=== PATIENT | male | born 1960 | race Hispanic/Latino ===

== ENCOUNTER 2017-04-20 15:25 | Emergency (ER) | payer SELFPAY ==
[2017-04-20 16:55] LABS: INR-International Normal Ratio 1.1; PTT 35.1 SEC (22.9-36.1); Prothrombin Time 14.6 SEC (12.0-14.7)
[2017-04-20 17:02] LABS: ALT (SGPT) 42 U/L (8-55); AST (SGOT) 100 U/L (5-34); Albumin 3.6 g/dL (3.5-5.0); Alkaline Phosphatase 110 U/L (40-150); Anion Gap 18 mmol/L (10-20); BUN (Urea Nitrogen) 11 mg/dL (8.4-25.7); Bilirubin, Total 0.7 mg/dL (0.2-1.2); Calc. Creatinine Clearance 0 mL/min (70-130); Calcium 8.4 mg/dL (7.8-10.44); Carbon Dioxide 26 mmol/L (22-29); Chloride 101 mmol/L (98-107); Estimated GFR-MDRD Greater than 90; Glucose 94 mg/dL (70-105); Potassium 3.3 mmol/L (3.5-5.1); Protein, Total 8.6 g/dL (6.0-8.3); Sodium 142 mmol/L (136-145)
[2017-04-20 18:48] LABS: #Basophils 0.1 thou/uL (0.0-0.2); #Monocytes 0.8 thou/uL (0.11-0.59); #Neutrophils 8.5 thou/uL (1.40-6.50); %Basophils 0.6 % (0.0-1.0); %Eosinophils 0.1 % (0.0-10.0); %Lymphocytes 9.4 % (21.0-51.0); %Monocytes 7.6 % (0.0-10.0); %Neutrophils 82.4 % (42.0-75.0); Hemoglobin 10.3 g/dL (14.0-18.0); Mean Corpuscular Hemoglobin 27.8 pg (27.0-31.0); Mean Corpuscular Volume 89.8 fl (80.0-94.0); Mean Platelet Volume 8.4 fL (7.4-10.4); RBC Distribution Width 16.5 % (11.5-14.5); Red Blood Cell (RBC) Count 3.69 mill/uL (4.70-6.10); White Blood Cell (WBC) Count 10.3 thou/uL (4.8-10.8)
[2017-04-20 19:09] LABS: Anisocytosis SLIGHT = 6-15 cells (100X) (0-5/hpf); Hypochromia SLIGHT = 6-15 cells (100X) (0-5/hpf); Large Platelets SLIGHT; MDiff Complete? YES; Microcytosis SLIGHT = 6-15 cells (100X) (0-5/hpf); Ovalocytes SLIGHT = 2-5 cells (100X) (0-1/hpf); PLT Morphology Comment Appears Decreased; Platelet Count 37 thou/uL (130-400); Polychromasia SLIGHT = 2-3 cells (100X) (0-2/hpf); Target Cells SLIGHT = 2-5 cells (100X) (0-1/hpf)
== END 2017-04-20 19:13 | disposition home or self-care (01) ==
LOC: NAV ERS 15:25
DX: K29.20 Alcoholic gastritis without bleeding (principal); D64.9 Anemia, unspecified; K05.6 Periodontal disease, unspecified; K05.10 Chronic gingivitis, plaque induced
CPT/HCPCS: 80053; 85025; 85610; 85730; 96360

== ENCOUNTER 2018-05-08 18:07 | Emergency (ER) | payer SELFPAY ==
[2018-05-08] MEDS ORDERED: Diltiazem 125 MG/25 ML ONE (18:33)
[2018-05-08] MEDS ORDERED: Sodium Chloride 0.9% 1,000 ML ONE ×2 (18:36→19:15)
[2018-05-08 18:43] LABS: Bilirubin Negative (Negative); Blood, Urine Negative (Negative); Clarity Clear (Clear); Glucose, Urine (Dipstick) Negative (Negative); Leukocyte Negative (Negative); Nitrite Negative (Negative); Protein, Urine (Dipstick) Negative (Neg-Trace); Specific Gravity, Urine 1.015 (1.005-1.030); pH, Urine 7.5 (5.0-9.0)
[2018-05-08 18:47] LABS: INR-International Normal Ratio 1.2; Prothrombin Time 15.2 SEC (12.0-14.7)
[2018-05-08 18:48] LABS: PTT 37.2 SEC (22.9-36.1)
[2018-05-08 18:49] LABS: Amphetamine Not Detected (NotDetected); Barbiturates Screen Not Detected (NotDetected); Benzodiazepine Screen Not Detected (NotDetected); Cocaine Metabolite Screen Not Detected (NotDetected); Medtox Control Line Valid? VALID (VALID); Methadone Not Detected (NotDetected); Methamphetamine Not Detected (NotDetected); Opiate Screen Not Detected (NotDetected); Oxycodone Screen Not Detected (NotDetected); Phencyclidine (PCP) Not Detected (NotDetected); THC/Cannabinoid Screen Not Detected (NotDetected); Tricyclic Screen Not Detected (NotDetected)
[2018-05-08 18:56] LABS: #Basophils 0.1 thou/uL (0.0-0.2); #Lymphocytes 0.7 thou/uL (1.20-3.40); #Monocytes 0.4 thou/uL (0.11-0.59); #Neutrophils 2.5 thou/uL (1.40-6.50); %Basophils 1.7 % (0.0-1.0); %Lymphocytes 18.5 % (21.0-51.0); %Monocytes 9.9 % (0.0-10.0); Hemoglobin 7.7 g/dL (14.0-18.0); Mean Corpuscular HGB CONC 28.2 g/dL (32.0-36.0); Mean Corpuscular Hemoglobin 18.6 pg (27.0-31.0); Mean Corpuscular Volume 66.1 fL (78.0-98.0); Mean Platelet Volume 6.4 fL (7.4-10.4); Platelet Count 34 thou/uL (130-400); RBC Distribution Width 19.8 % (11.5-14.5); Red Blood Cell (RBC) Count 4.14 mill/uL (4.70-6.10); White Blood Cell (WBC) Count 3.5 thou/uL (4.8-10.8)
[2018-05-08 18:57] LABS: ALT (SGPT) 35 U/L (8-55); AST (SGOT) 99 U/L (5-34); Albumin 3.7 g/dL (3.5-5.0); Alcohol 262 mg/dL (Less than 10); Alkaline Phosphatase 101 U/L (40-150); Anion Gap 20 mmol/L (10-20); BUN (Urea Nitrogen) 5 mg/dL (8.4-25.7); Bilirubin, Total 0.7 mg/dL (0.2-1.2); Calc. Creatinine Clearance 0 mL/min (70-130); Calcium 9.2 mg/dL (7.8-10.44); Carbon Dioxide 23 mmol/L (22-29); Chloride 96 mmol/L (98-107); Estimated GFR-MDRD Greater than 90; Globulin 5.5 g/dL (2.4-3.5); Glucose 119 mg/dL (70-105); Potassium 3.3 mmol/L (3.5-5.1); Protein, Total 9.2 g/dL (6.0-8.3); Sodium 136 mmol/L (136-145)
[2018-05-08] MEDS ORDERED: Pantoprazole 40 MG VIAL ONE (19:15)
[2018-05-08] MEDS ORDERED: Sodium Chloride 0.9% 250 ML 250 ML ONE (19:27)
[2018-05-08 19:36] LABS: Anisocytosis SLIGHT = 6-15 cells (100X) (0-5/hpf); Hypochromia MODERATE=16-30 cells (100X) (0-5/hpf); MDiff Complete? YES; Ovalocytes SLIGHT = 2-5 cells (100X) (0-1/hpf); Platelet Morphology Comment Appears Decreased; Poikilocytosis MODERATE=16-30 cells (100X) (0-5/hpf); Reflex for Review?? YES; Tear Drops SLIGHT = 2-5 cells (100X) (0-1/hpf)
--- NOTE | 2018-05-08 19:40 | CT ---
CT HEAD NONCONTRAST: HISTORY: Syncope. COMPARISON: None. FINDINGS: There is no evidence of acute intracranial hemorrhage or infarct. Diffuse cortical atrophy and chron ic ischemic small vessel disease are apparent. Calcification at the right posterior aspect of the po sterior fossa is favored to represent volume averaging of the right skull base. The visualized paran dinh sinuses are well aerated. IMPRESSION: No acute intracranial abnormalities are demonstrated. POS: BST
--- NOTE | 2018-05-08 21:07 | RAD ---
CHEST ONE VIEW: HISTORY: Syncope. COMPARISON: None. FINDINGS: The cardiac silhouette is magnified by projection. Shallow inspiration accentuates pulmonary marking s. Mediastinum is midline. No lobar consolidation or evidence of pneumothorax. Mild atelectasis at the left lung base. radiation monitor leads overly the chest. IMPRESSION: No active cardiopulmonary abnormalities are demonstrated. POS: BST
[2018-05-08] MEDS ORDERED: Cefepime 2 GM VIAL ONE (21:12)
[2018-05-08 21:23] LABS: CO2 Tension (PvCO2) 36.7 mmHg (41.0-51.0); pH (Venous) 7.423 (7.35-7.45)
[2018-05-08 21:24] LABS: Base Excess-Venous -0.4 mmol/L (0 (+/- 2.5)); Bicarbonate (HCO3v) 23.9 mmol/L (22.0-29.0); O2 Tension (PvO2) 90.4 mmHg (35.0-45.0); vO2 Saturation-calc 97.2 % (94-98)
[2018-05-08] MEDS ORDERED: Multivitamin W/ Minerals 1 TAB PO SCH (21:30)
[2018-05-08] MEDS ORDERED: Dextrose 5 %-0.45 % NaCl 1,000 ML ONE (21:30)
[2018-05-08 21:34] LABS: Calcium, Ionized 0.98 mmol/L (1.12-1.32); Hemoglobin - Calc 8.7 g/dL (12.0-18.0); Potassium 3.2 mmol/L (3.4-4.7); T. Carbon Dioxide 25.1 mmol/L (1.0-85.0)
[2018-05-08] MEDS ORDERED: Potassium Chloride 20 MEQ TAB ONE (22:47)
[2018-05-08] MEDS ORDERED: Magnesium Oxide 400 MG TAB PO SCH (23:00)
[2018-05-09 00:56] LABS: Lactic Acid 3.1 mmol/L (0.5-2.2)
[2018-05-09] MEDS ORDERED: Dextrose 5 %-0.45 % NaCl 1,000 ML ONE (01:18)
[2018-05-09] MEDS ORDERED: Enoxaparin Sodium 40 MG/0.4 ML SYRINGE ONE (04:04)
[2018-05-09] MEDS ORDERED: Enoxaparin Sodium 30 MG/0.3 ML SYRINGE ONE (04:04)
[2018-05-09] MEDS ORDERED: Dextrose 5 %-0.45 % NaCl 1,000 ML IV SCH (05:30)
[2018-05-09] MEDS ORDERED: Lorazepam 2 MG/ML VIAL ONE ×3 (06:30→07:16)
[2018-05-09] MEDS ORDERED: Sodium Chloride 0.9% 0 ML ONE (07:02)
[2018-05-09] MEDS ORDERED: Potassium Chloride 10 MEQ/100 ML PREMIX BAG ONE (07:02)
[2018-05-09 07:04] LABS: Anion Gap 24 mmol/L (10-20); Globulin 5.4 g/dL (2.4-3.5)
[2018-05-09 07:06] LABS: Hemoglobin 9.8 g/dL (14.0-18.0); Mean Corpuscular HGB CONC 29.2 g/dL (32.0-36.0); Mean Corpuscular Hemoglobin 20.8 pg (27.0-31.0); Mean Platelet Volume 9.4 fL (7.4-10.4); Platelet Count 33 thou/uL (130-400); RBC Distribution Width 21.7 % (11.5-14.5); Red Blood Cell (RBC) Count 4.71 mill/uL (4.70-6.10); White Blood Cell (WBC) Count 5.8 thou/uL (4.8-10.8)
[2018-05-09 07:07] LABS: ALT (SGPT) 29 U/L (8-55); AST (SGOT) 67 U/L (5-34); Albumin 3.5 g/dL (3.5-5.0); Alkaline Phosphatase 108 U/L (40-150); Anisocytosis SLIGHT = 6-15 cells (100X) (0-5/hpf); BUN (Urea Nitrogen) Less than 4 mg/dL (8.4-25.7); Bilirubin, Total 1.4 mg/dL (0.2-1.2); Calc. Creatinine Clearance 0 mL/min (70-130); Calcium 8.5 mg/dL (7.8-10.44); Carbon Dioxide 18 mmol/L (22-29); Chloride 94 mmol/L (98-107); Estimated GFR-MDRD Greater than 90; Glucose 185 mg/dL (70-105); Hypochromia SLIGHT = 6-15 cells (100X) (0-5/hpf); Lymphocytes 11 % (21-51); MDiff Complete? YES; Microcytosis SLIGHT = 6-15 cells (100X) (0-5/hpf); Monocytes 12 % (0-10); Neutrophil 77 % (42-75); Nucleated RBC 3 % (0); Platelet Morphology Comment Appears Decreased; Potassium 2.6 mmol/L (3.5-5.1); Protein, Total 8.9 g/dL (6.0-8.3); Sodium 133 mmol/L (136-145)
[2018-05-09] MEDS ORDERED: Sodium Chloride 0.9% 500 ML ONE (07:09)
== END 2018-05-09 07:30 | disposition short-term general hospital (02) ==
LOC: NAV ERS 18:07
DX: I48.91 Unspecified atrial fibrillation (principal); D64.9 Anemia, unspecified; E87.2 Acidosis; E87.6 Hypokalemia
CPT/HCPCS: 36415; 36416; 36430; 70450; 71045; 80053; 80306; 80307; 81003; 82274; 82330; 82803; 83605; 83735; 84146; 84484; 85014; 85018; 85025; 85060; 85610; 85730; 86850; 86900; 86901; 87040; 87086; 93005; 94760; 96361; 96365; 96366; 96374; 96375; 96376; C9113; J0692; J1650; J2060; J3480; J7042; J7050; P9016